=== PATIENT | female | born 1950 | race African-American/Black ===

== ENCOUNTER 2017-01-24 13:09 | Outpatient (CLI) | payer MEDICAID | END 2017-01-24 13:10 | disposition critical access hospital (66) | LOC: EMS 13:09 | PROVIDERS: ATTEND Surgery | DX: M79.662 Pain in left lower leg (principal) | CPT/HCPCS: A0425; A0429 ==

== ENCOUNTER 2017-01-24 13:30 | Emergency (ER) | payer MEDICAID ==
[2017-01-24 13:35] VITALS: BP 141/88
--- NOTE | 2017-01-24 13:54 | ED Physician Documentation ---
History of Present Illness - Stated complaint Stated Complaint: L LEG SWELLING - Chief complaint Chief Complaint: Ext Problem - History obtained from History obtained from: Patient, EMS - History of Present Illness Timing: Chronic (1992) Pain level max: 5 Pain level now: 5 Radiates to: none - Additonal information Additional information: States swollen legs since her CVA in 1992. out of her meds. requesting refill of her amityptilline. No other complaints at this time. Patient states that her swelling is actually better today than usual. 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: Hysterectomy - Present Medications Home Medications: Ambulatory Orders Medication Instructions Recorded Confirmed Amitriptyline HCl 100 - 200 mg PO QPM #60 tablet 01/24/17 Amitriptyline [Elavil] 100 mg PO DAILY 01/24/17 01/24/17 Hydroxyzine Pamoate [Vistaril] 50 mg PO Q6HR PRN 01/24/17 01/24/17 Lisinopril 10 mg PO DAILY 01/24/17 01/24/17 oxyCODONE [Roxicodone] 5 mg PO Q6HR PRN 01/24/17 01/24/17 - Allergies Allergies/Adverse Reactions: Allergies Allergy/AdvReac Type Severity Reaction Status Date / Time atorvastatin calcium * Allergy Unknown Verified 01/24/17 13:35 [From Lipitor] codeine Allergy Unknown Verified 01/24/17 13:35 pregabalin [From Lyrica] Allergy Unknown Verified 01/24/17 13:35 - Social History Does the pt smoke?: No Smoking Status: Never smoker PD ED PE NORMAL - Vitals Vital signs reviewed: Yes - General General: Alert and oriented X 3, No acute distress, Well developed/nourished - HEENT HEENT: Moist mucous membranes - Neck Neck: Supple, no meningeal sign - Cardiac Cardiac: RRR, Strong equal pulses - Respiratory Respiratory: No respiratory distress, Clear bilaterally - Abdomen Abdomen: Soft, Non tender, Non distended - Derm Derm: Warm and dry - Extremities Extremities: No calf tenderness / cord, Other (2+ B LE edema. pitting. NVI. ) - Neuro Neuro: Alert and oriented X 3 - Psych Psych: Normal mood, Normal affect Results - Vitals Vitals: Vital Signs - 24 hr 01/24/17 13:32 Temperature 37.0 C Heart Rate 89 Respiratory 16 Rate Blood Pressure 141/88 H O2 Saturation 100 Oxygen O2 Source Room air PD MEDICAL DECISION MAKING - ED course Complexity details: considered differential, d/w patient ED course: Patient is a 66-year-old female who presents to the emergency department with bilateral lower extremity swelling, left greater than right. States this is chronic and unchanged. She is out of her amitriptyline. No evidence of DVT clinically. Will refill her amitriptyline for her. No evidence of infection or cellulitis. No compartment syndrome. Patient counseled regarding signs and symptoms for which I believe and urgent re-evaluation would be necessary. Patient with good understanding of and agreement to plan and is comfortable going home at this time This document was made in part using voice recognition software. While efforts are made to proofread this document, sound alike and grammatical errors may occur. Departure - Departure Disposition: 01 Home, Self Care Clinical Impression: Peripheral edema Condition: Good Instructions: ED Leg Swelling Unilateral Follow-Up: your,doctor in 1 week [Other] Prescriptions: Amitriptyline HCl 100 - 200 mg PO QPM #60 tablet Comments: Return if you worsen. Follow up with your doctor for medication refills. Discharge Date/Time: 01/24/17 13:59
== END 2017-01-24 13:59 | disposition home or self-care (01) ==
LOC: ED 13:30
DX: R60.0 Localized edema (principal); M79.89 Other specified soft tissue disorders; I10 Essential (primary) hypertension; Z86.73 Personal history of transient ischemic attack (TIA), and cerebral infarction without residual deficits
CPT/HCPCS: 99283